=== PATIENT | male | born 1990 | race Caucasian/White ===

== ENCOUNTER 2025-05-27 19:33 | Emergency (ER) | payer OTHER ==
[~2025-05-27] VITALS: Ht 180.3 cm; Wt 111.1 kg
[2025-05-27 20:04] VITALS: TEMP 98.1
[2025-05-27 20:25] LABS: PLATELET COUNT (AUTO) 227 K/uL (150-450); RED BLOOD CELL COUNT(AUTO) 4.81 MIL/uL (4.5-6.0); RED CELL DISTRIBUTION WIDTH 12.3 % (11.5-15.0); WHITE BLOOD COUNT (AUTO) 6.0 K/uL (4.3-11.0)
[2025-05-27] MEDS: METOCLOPRAMIDE HCL 10 MG TABLET PO ONE (20:32)
[2025-05-27] MEDS: DICYCLOMINE HCL 10 MG CAPSULE PO ONE (20:32)
[2025-05-27 20:33] LABS: CALCIUM, SERUM 8.7 mg/dL (8.5-10.1); CREATININE 1.2 mg/dL (0.6-1.3); SODIUM SERUM 138.0 mmol/L (136-145); UREA NITROGEN, BLOOD 18.0 mg/dL (7-18)
[2025-05-27 20:38] LABS: ASPARTATE AMINOTRANSFERASE 15.0 U/L (15-37); TOTAL PROTEIN, SERUM 7.7 g/dL (6.4-8.2)
[2025-05-27 21:52] LABS: APPEARANCE,URINE CLEAR (CLEAR); BLOOD, URINE NEGATIVE Ery/uL (NEGATIVE); LEUKOCYTE ESTERASE ,URINE NEGATIVE (NEGATIVE); NITRITE, URINE NEGATIVE (NEGATIVE); UGLUCOSE NEGATIVE (NEGATIVE)
[2025-05-27] MEDS ORDERED: DICY10CA37 PO (21:59)
[2025-05-27] MEDS ORDERED: FAMO20TA8 PO (21:59)
[2025-05-27 22:18] VITALS: BP 154/89; O2SAT 97
== END 2025-05-27 22:19 | disposition home or self-care (01) ==
LOC: ER 20:49
DX: R10.13 Epigastric pain (principal); R19.7 Diarrhea, unspecified
CPT/HCPCS: 99283; 85025; 80048; 87086; 83690; 80076; 81003; 36415; J8597